=== PATIENT | female | born 1970 | race Caucasian/White ===

== ENCOUNTER → 2016-06-23 | Outpatient (CLI) | payer OTHER ==
--- NOTE | 2016-06-23 14:43 | MR ---
MRI of the Lumbar Spine (Without Contrast) June 23, 2016 Indication: Polyneuropathy. ICD-10: G62.9. Technique: Sagittal and axial T1 and T2 , and sagittal STIR MR sequences of the lumbar spine witho ut contrast. Axial imaging from T12 through S1. Comparison: None. Findings: The lumbar spine is anatomically aligned. The bone marrow signal is normal. No compressi on fracture, pars defect, or bone marrow replacing lesion. The paraspinal soft tissues are normal. The aorta is normal caliber. The conus medullaris is at L1-L2. The spinal canal is capacious. T12-L1: Normal disk. Central canal and neural foramina are widely patent. L1-L2: Normal disk. Central canal and neural foramina are widely patent. Minimal facet hypertrophy. L2-L3: Normal disk. Central canal and neural foramina are widely patent. Minimal facet hypertrophy. L3-L4: Minimal disk desiccation. Facet hypertrophy and ligamentum flavum thickening result in minimal acquired central canal narrowing. The neural foramina are widely patent. L4-L5: Minimal disk desiccation. Facet hypertrophy and ligamentum flavum thickening result in no sign ificant central canal narrowing. The neural foramina are widely patent. L5-S1: Normal disk. Central canal and neural foramina are widely patent. Minimal facet hypertrophy. Impression: 1. Normal MRI of the lumbar spine with exception of minimal facet hypertrophy. 2. No disk herniation or central canal or neural foraminal stenosis.
== END ==
LOC: FIMAGING 13:14
PROVIDERS: ATTEND Internal Medicine
DX: G62.9 Polyneuropathy, unspecified (principal)